=== PATIENT | male | born 1960 | race Caucasian/White ===

== ENCOUNTER 2025-03-30 12:51 | Outpatient (AMB) | payer OTHER, SELFPAY ==
--- NOTE | 2025-03-30 13:11 | A.PHYSOV_ITS ---
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 Patient has been referred for cervical radiculopathy. Left side of neck is worse Allergies azithromycin Allergy (Unknown, Verified 03/30/25 13:09) Unknown indomethacin Allergy (Unknown, Verified 03/30/25 13:09) Unknown HPI Comments Details: History of Present Illness The patient is a 64 year old male presenting with recurrent neck pain. He has a history of cervical spine surgery approximately 20 years ago for symptoms that were on his right side. He has residual numbness in one finger from the previous surgery. The current episode of neck pain began a couple of weeks prior to Bucky and is located on the left side. He has experienced intermittent tingling into his left elbow. The pain is not debilitating but is rated as a 6 or 7 out of 10 with head turning. He has also noticed increased clicking in his neck, especially in the evening. For management, he has been using a heating pad and takes a muscle relaxant at night as needed, while trying to avoid other medications. He uses Tylenol and Advil for severe pain. He had a neck X-ray in mid-February, but his insurance denied a subsequent request for an MRI. He has not participated in physical therapy since before his surgery 20 years ago. I reviewed the referring provider's no prior to consultation. Pain Description - Location: Pain is on the left side of the neck. - Onset: Started a couple of weeks before Bucky. - Radiation: Intermittent tingling into the left elbow. - Severity: Rated as a 6 or 7 out of 10 when turning his head, but fine at rest. - Quality: Associated with clicking sounds, which have become more frequent. - Exacerbating Factors: Pain worsens with head turning, particularly to the left. - Relieving Factors: Patient uses a heating pad. - Impact on Function: The pain is not debilitating and he can still perform activities, though he has not tried to swing a golf club. Results - Imaging: Patient reports having an X-ray of his neck in mid-February. 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 - Reports increased crepitus in the neck. - Neurological: Reports intermittent tingling in the left elbow. - Reports persistent numbness in one finger since prior surgery. Physical Exam Exam Exam: Physical Exam - Neck: No tenderness to palpation midline. - Mild tenderness on the left side with palpation. - Limited active range of motion with rotation. - Neurological: Sensation intact and equal bilaterally in upper extremities. - Musculoskeletal: Good strength with shoulder shrug and forward arm flexion. - He does have an increase in pain with Spurling's maneuver to his left shoulder. - Full range of motion bilateral upper extremities. Equal opener tender strength bilaterally. Vital Signs: BMI result Body Mass Index 29.7 Assessment & Plan Assessment & Plan (1) Cervical radiculopathy: Code(s): M54.12 - Radiculopathy, cervical region Category: Medical (2) Cervical spondylosis: Code(s): M47.812 - Spondylosis without myelopathy or radiculopathy, cervical region Category: Medical Plan Pain Management - Analgesia: The patient uses a muscle relaxant at night as needed, and Tylenol and Advil for severe pain. - His pain is currently fine but increases to a 6-7/10 with head turning. - Activities of Daily Living: The pain is not debilitating, but he has avoided certain activities like swinging a golf club. - Aberrant Drug Related Behaviors: The patient is actively trying to avoid taking medications. Plan Patient was informed and verbally consented to the use of an ambient scribe for clinic note documentation during this visit. 1. Cervicalgia The patient presents with recurrent left-sided neck pain, distinct from the right-sided symptoms that led to his cervical fusion 20 years ago. An MRI has been denied by insurance pending a trial of conservative therapy. A physician- directed home exercise plan will be initiated for five weeks, after which he will be re-evaluated. The plan includes straight-plane stretching and isometric strengthening exercises to be performed every other day, with avoidance of rotary movements. If symptoms do not improve after five weeks, an MRI of the cervical spine will be ordered. Discussion Notes I discussed with the patient that his increased neck crepitus is likely due to degenerative changes and increased movement at the spinal levels above and below his previous fusion. I explained that insurance requires a trial of conservative management, such as a home exercise program or physical therapy, before they will approve an MRI. The patient opted for a five-week physician-directed home exercise plan. I provided him with instructions for specific exercises, i ncluding straight-plane stretching and isometrics, while advising him to avoid rotary neck movements. I informed him that if his symptoms do not improve after the five-week period, we will proceed with ordering the MRI. A follow-up appointment was scheduled in five weeks to reassess his condition. Patient Instructions - Perform your prescribed neck exercises every other day for the next five we eks. - The exercises include stretching your neck forward, backward, and [id number]. - Also perform the strengthening exercises by placing your hand on your head and gently pushing against it for 10 seconds (forward, backward, and to each side). - Do not perform any twisting or rotating movements with your neck. - You may continue to use a heating pad, muscle relaxants, Tylenol, or Advil as needed for your pain. - Return to the clinic for a follow-up appointment in five weeks. Coding Level of Care Code New Pt Level 4 (59106) Diagnoses Cervical radiculopathy M54.12 Cervical spondylosis M47.812
[2025-03-30 13:12] VITALS: BMI 29.7
--- OUTSIDE RECORDS SUMMARY | 2025-03-30 14:26 | XMS_ITS | Clinical Summary ---
Author Organization 175 [facility] Address [address] [place] [address] Phone Care Team Providers Care Business Systems Consultant Name Role Phone Sabine Bill MD Primary Care Prov ider Allergies Active Allergy Reactions Criticality Noted Date Comments Azithromycin Rash Low 04/19/2016 No reaction documented. Indomethacin 07/22/2018 No reaction documented. Medications albuterol HFA (PROAIR HFA ; PROVENTIL HFA ; VENTOLIN HFA) 90 mcg/actuation inhaler Inhale 2 Puffs into the lungs every 4 hours as needed for Cough or Wheezing. 4 Active simvastatin (ZOCOR) 20 mg tablet TAKE 1 TABLET BY MOUTH AT BEDTIME 90 tablet 1 5 Active montelukast (SINGULAIR) 10 mg tablet TAKE 1 TABLET BY MOUTH AT BEDTIME 90 tablet 1 5 Active allopurinoL (ZYLOPRIM) 300 mg tablet TAKE 1 TABLET BY MOUTH DAILY 90 tablet 1 5 Active methocarbamoL (ROBAXIN) 750 mg tablet Take 1 tablet (750 mg total) by mouth at bedtime as needed for muscle spasms. 30 tablet 5 Active allopurinoL (ZYLOPRIM) 300 mg tablet TAKE 1 TABLET BY MOUTH DAILY 90 tablet 3 4 03/07/20 25 Discontinued simvastatin (ZOCOR) 20 mg tablet TAKE 1 TABLET BY MOUTH AT BEDTIME 90 tablet 3 4 03/07/20 25 Discontinued montelukast (SINGULAIR) 10 mg tablet TAKE 1 TABLET BY MOUTH AT BEDTIME 90 tablet 3 4 03/07/20 25 Discontinued Active Problems Problem Noted Date Diagnosed Date Sarcoidosis 03/10/2025 Mixed hyperlipidemia 03/10/2025 Postural dizziness 01/13/2025 Assessment & Plan (01/13/2025 8:03 AM EDT): Patient does endorse postural dizziness occasionally when changing positions too quickly. He was encouraged to remain hydrated, change positions slowly and to utilize compression stockings. Denies presyncope or syncope. Tubular adenoma 06/20/2023 Cervical radiculopathy 09/07/2021 Overview (01/14/2024): Last Assessment & Plan: Patient is s/p C5-6, C6-[address] Arreola 08/03/2006, he has been experiencing upper extremity pain, numbness tingling sporadically on and off this year, originally starting in the right arm. He had an appointment 09/07/2021 for right arm pain that had resolved by the time he came in, called back 11/13/2021 that the right arm pain recurred, went for PT. He states he was only able to do a couple sessions, then got COVID infection (approximately early December), was on Paxilovid. After his COVID infection, the right arm symptoms resolved, and he did not continue with PT. He comes back in today after noting new left arm symptoms similar to the right sided symptoms. He describes pain/discomfort in the left intrascapular region down the posterior arm, primarily in the elbow, with numbness tingling radiating down the posterior arm into the digits primarily left fifth digit. He states laying on his side is uncomfortable, he is not sleeping well, unless he sleeps on his back. He rates his left elbow pain 5-6/10 at its worst. We again reviewed his cervical spine MRI images on the computer, dated 08/30/2021 from [facility], he has postop changes with fusion C5-7, remaining levels with degenerative changes including neuroforaminal narrowing at multiple levels, worst at C3-4, but he also has right >left neuroforaminal narrowing at C7-T1 below his fusion level. Mr. Rich would like to try physical therapy again, prescription provided. Back in October, we had talked about trying right C6-7 CHIN before his symptoms resolved, he never had the injection done. If he is not improving with PT, we could consider CHIN, ordering EMG/NCS study. He will call with an update after PT, or with any additional questions or concerns prior to that. All questions answered on today's visit. Sinus bradycardia 08/07/2020 Overview (01/14/2024): / diffuse sarcoidosis Last Assessment & Plan: Bradycardic upon exam today with a heart rate in the low 50s. We will update 24- hour Holter monitor to further evaluate average ventricular heart rates as patient has complaints of increased shortness of breath and fatigue since his last office visit. He is not on any AV bib blocking agents. Assessment & Plan (01/13/2025 8:03 AM EDT): EKG was sinus bradycardia with a ventricular heart rate of 52 bpm today. Patient has had a few monitors over the years which revealed sinus bradycardia without any high degree AV block or sustained arrhythmias/pauses. He is not on any AV bib blocking agents. He is asymptomatic at this time. He will continue to monitor for any sudden onset dizziness lightheadedness, presyncope or syncope. Overweight (BMI 25.0-29.9) 09/16/2018 DDD (degenerative disc disease), lumbar 07/23/19 19 Internal hemorrhoids 07/22/2018 Overview (01/14/2024): 12/2015 H/o thrombosed Asthma 07/08/2016 Gout 04/19/2016 Hypercholesterolemia 04/19/2016 Assessment & Plan (01/13/2025 8:03 AM EDT): His last fasting lipid profile from 5 months ago revealed an LDL of 77. Elevation in triglycerides. This is being managed by his PCP. Total cholesterol 186. He will continue on his current dose of simvastatin 20 mg and be mindful of dietary fat intake. Resolved Problems Problem Noted Date Diagnosed Date Resolved Date Shortness of breath 11/14/2023 07/29/19 Overview (01/14/2024): Last Assessment & Plan: We will update surveillance echocardiogram to evaluate for any valvular abnormalities and LVEF. The patient has been encouraged to follow-up with his bryologist as it has been quite sometime and he plans to do so. Atypical chest pain 12/27/2020 07/29/19 Overview (01/14/2024): Last Assessment & Plan: He denies any anginal symptoms. Instructed to call 911 or go to the emergency room should the patient begin to experience chest pain or pressure lasting greater than 10 minutes does not resolve with rest. Encounters Date Type Department Care Team Description 03/11/2025 Results Follow-Up Adult Medicine - [address] [phone] Ngoc Tucker PA 03/10/2025 9:45 AM EST - 03/10/2025 11:59 PM EST Hospital Encounter Xray - [address] [phone] Cervical radiculopathy Discharge Disposition: Home or Self Care 03/10/2025 9:40 AM EST Lab Draw Station - [address] [phone] Routine general medical examination at a health care facility; Idiopathic chronic gout without tophus, unspecified site; Prostate cancer screening 03/10/2025 9:00 AM EST Office Visit Adult Medicine - [address] [phone] Ngoc Tucker PA Prostate cancer screening (Primary Dx); Routine general medical examination at a health care facility; Mixed hyperlipidemia; Mild intermittent asthma without complication; Idiopathic chronic gout without tophus, unspecified site; Sinus bradycardia; Tubular adenoma; Sarcoidosis; Cervical radiculopathy 01/28/2025 8:30 AM EDT Ancillary Procedure Pulmonology - [place] [address] [place] [address] Pulmonary sarcoidosis ([facility]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 [address] [facility] [address] [place] [address] Marcella Prater NP Bradycardia (Primary Dx); Sinus bradycardia; Hypercholesterolemia; Postural dizziness 01/03/2025 8:45 AM EDT Office Visit Adult Medicine [address] [address] Frank Vásquez PA Pain of left heel (Primary Dx); Needs flu shot from Last 3 Months Immunizations Immunization Administration Dates Next Due Influenza Quadravalent, MDCK , 0.5ml, preservative free (Flucelvax) 6mo and older 12/20/2022,01/08/2021,11/19/2016 Influenza Quadravalent, MDCK , 0.5ml, with preservative (Flucelvax) 6mo and older 02/08/2022,12/17/2019,01/30/2019 Influenza Quadrivalent, 0.5m l, preservative free (Fluarix; FluLaval; Fluzone) ages 6mo and older (Afluria) 3yo and older 02/08/2022,12/17/2019,01/30/2019 Influenza trivalent, 0.5mL, preservative free (Fluarix; FluLaval; Fluzone) ages 6mo and older (Afluria) 3 years and older 01/11/2024 Influenza trivalent, MDCK, 0 .5mL, preservative free (Flucelvax) 6mo and older 01/03/2025 Influenza trivalent, with preservative (Fluzone; Afluria) 6mo and older 12/09/2023,12/20/2011 Influenza, Unspecified 01/11/2024 Pfizer SARS-CoV-2 COVID-19, mRNA, LNP-S, preservative free 07/18/2020,07/17/2020,06/27/2020,2020 RSV, bivalent, protein subun it RSVpreF, 0.5mL, Preservative Free (Arexvy) 50yo and older 06/04/2024 Tdap Tetanus diptheria acell ular pertussis (Boostrix; Adacel) 7yo and older 09/16/2018 Zoster recombinant (Shingrix ) 19yo and older 08/03/2021,03/25/2021 Surgical History Surgery Date Site/Laterality Comments COLONOSCOPY 12/28/2012 PROCEDURE: HISTORICAL COLONOSCOPY; COMMENT: repeat 10 years; no report TONSILLECTOMY PROCEDURE: HISTORICAL TONSILLECTOMY OTHER SURGICAL HISTORY 08/03/2006 PROCEDURE: AR ARTHRD ANT INTERBODY MIN DSC CRV BELOW C2; COMMENT: C5-6, C6-7 ACDF, Dr. Arreola Medical History Medical History Date Comments Internal hemorrhoids 07/22/2018 DX:Internal hemorrhoids; COMMENT: 12/2015 H/o thrombosed Asthma 07/08/2016 DX:Asthma Gout 04/19/2016 DX:Gout Hypercholesterolemia 04/19/2016 DX:Hypercho lesterolemia DDD (degenerative disc disease), lumbar 07/23/19 DX:DDD (degenerative disc disease), lumbar Overweight (BMI 25.0-29.9) DX:Ov erweight (BMI 25.0-29.9) Sarcoidosis DX:Sarcoidosis Family History Medical History Relation Name Comments Diabetes Brother 1 HTN Hypertension Brother 2 Other: ?emphysema Brother 3 Stroke Father Emphysema Mother tobacco Diabetes Sister 1 Stroke Sister 1 Lymphoma Sister 2 No Known Problems Son Relation Name Status Comments Brother 1 Alive Brother 2 Alive Brother 3 Father Mother Sister 1 Sister 2 Alive Son Alive Social History Tobacco Use Types Packs/Day Years Used Date Smoking Tobacco: Never Smokeless Tobacco: Never Tobacco Cessation:Counseling Given: Not Answered Alcohol Use Standard Drinks/Week Comments Yes 0 (1 standard drink = 0.6 oz pur e alcohol) Housing Instability Answer Date Recorde d Are you worried that in the next 2 months you may not have stable housing? No 09/08/2024 Food Access & Nutrition Answer Date Rec orded Do you have access to a vari ety of food including fruits and vegetables? Yes 09/08/2024 Access to Healthcare Answer Date Record ed Within the last 3 months, ho w many times did you visit the emergency department for your medical care? 0 09/08/2024 Health Literacy Answer Date Recorded How often do you need to hav e someone help you when you read instructions, pamphlets, or other written material from your doctor or pharmacy? Never 09/08/2024 Caregiver: How often do you need to have someone help you when you read instructions, pamphlets, or other written material from your doctor or pharmacy? Not on file 09/08/2024 Financial Risk Answer Date Recorded How hard is it for you to pa y for the very basics like food, housing, medical care, and air conditioning / heating? Not very hard 09/08/2024 Transportation Answer Date Recorded Has the lack of transportati on kept you from meetings, work, or from getting things needed for daily living? No Has the lack of transportati on kept you from medical appointments or from getting medications? No 09/08/2024 Social Isolation Answer Date Recorded How often do you feel lonely or isolated from ose around you? Rarely 09/08/2024 Food Risk Answer Date Recorded Within the past 12 months we worried whether our food would run out before we got money to buy more. Never true 09/08/2024 Within the past 12 months th e food we bought just didn't last and we didn't have money to get more. Never true 09/08/2024 Dependent Care Answer Date Recorded Do you need help finding or paying for care for your loved ones. For example, children librarian or elderly care for an older adult? No 09/08/2024 Education Answer Date Recorded Do you think completing more education or training, like finishing a GED, going to college, or learning a trade, would be helpful for you? N/A 09/08/2024 Employment and Income Answer Date Recor ded During the last four weeks, have you been actively looking for work? No 09/08/2024 Living Situation Answer Date Recorded What is your living situation? Unrecognized valu e 09/08/2024 Sex and Gender Information Value Date Recorded Sex Assigned at Not on file Legal Sex Male 9:09 PM EST Gender Identity Not on file Sexual Orientation Not on file Last Filed Vital Signs Vital Sign Reading Time Taken Comments Blood Pressure 110/60 03/10/2025 9:30 AM EST Pulse 55 03/10/2025 8:45 AM EST Temperature 36.7 C (98 F) 01/03/2025 8:35 AM EDT Respiratory Rate 20 12/08/2024 8:30 AM EDT Oxygen Saturation 97% 03/10/2025 8:45 AM EST Inhaled Oxygen Concentration - - Weight 96.8 kg (213 lb 6.4 oz) 03/10/2025 8:45 A M EST Height 180.3 cm (5' 11 ) 01/13/2025 7:40 AM EDT Body Mass Index 29.76 01/13/2025 7:40 AM EDT Plan of Treatment Upcoming Encounters Date Type Department Care Team (Late st Contact Info) Description 09/08/2025 8:45 AM EDT Office Visit Adult Medicine - [place] [address] [place] [address] Ngoc Tucker PA [address] [place] [address] 12/08/2025 8:30 AM EDT Office Visit Pulmonology - [place] [address] [facility] [address] [place] [address] Jahaira Heller MD [address] [place] [address] Health Maintenance Due Date Last Done Comments Pneumococcal Vaccine: 50+ Years (1 of 2 - PCV) 1981 HIV Screening 05/01/2019 COVID-19 Vaccine (2024- season) 2024 01/11/2024, 02/02/2021, 07/18/2020, Additional history exists Social Influencers of Health Screening 09/08/2025 09/08/2024 Colorectal Cancer Screening: Colonoscopy 02/05/2028 02/04/2023 DTaP,Tdap,and Td Vaccines (2 - Td or Tdap) 09/16/2028 09/16/2018 Cholesterol Screening (Lipid Panel) 03/10/2030 03/10/2025, 07/28/2024, 01/27/2024, Additional history exists Zoster Vaccines Completed 08/03/2021, 03/25/2021 Hepatitis C Screening Completed 08/10/2021 RSV Immunization Adult Patients Completed 06/04/2024 Depression Screening Completed 09/08/2024 Influenza Vaccine Completed 01/03/2025, , 01/11/2024, Additional history exists HIB Vaccines Aged Out No longer eligi ble based on patient's age to complete this topic HPV Vaccines Aged Out No longer eligi ble based on patient's age to complete this topic Hepatitis A Vaccines Aged Out No long er eligible based on patient's age to complete this topic Hepatitis B Vaccines Aged Out No long er eligible based on patient's age to complete this topic IPV Vaccines Aged Out No longer eligi ble based on patient's age to complete this topic MMR Vaccines Aged Out No longer eligi ble based on patient's age to complete this topic Meningococcal ACWY Vaccine Aged Out N o longer eligible based on patient's age to complete this topic Meningococcal B Vaccine Aged Out No l onger eligible based on patient's age to complete this topic RSV Immunization Patients Under 20 months Aged Out No longer eligible based on patient's age to complete this topic Varicella Vaccines Aged Out No longer eligible based on patient's age to complete this topic Procedures Procedure Name Priority Date/Time Associated Diagnosis Comments XR CERVICAL SPINE 4-5 VIEWS Routine 03/10/2025 9:53 AM EST Cervical radiculopathy CBC WITH AUTO DIFFERENTIAL Routine 03/10/2025 9:40 AM EST Routine general medical examination at a health care facility PROSTATE SPECIFIC ANTIGEN SCREEN Routine 03/10/2025 9:40 AM EST Prostate cancer screening URIC ACID Routine 03/10/2025 9:40 AM EST Idiopathic chronic gout without tophus, unspecified site CBC AND DIFFERENTIAL Routine 03/10/2025 9:40 AM EST Routine general medical examination at a health care facility COMPREHENSIVE METABOLIC PANEL Routine 03/10/2025 9:40 AM EST Routine general medical examination at a health care facility LIPID PANEL WITH REFLEX TO DIRECT LDL Routine 03/10/2025 9:40 AM EST Routine general medical examination at a health care facility PULMONARY FUNCTION TESTING Routine 01/28/2025 8:53 AM EDT Pulmonary sarcoidosis (CMS/HCC V24) ECG 12-LEAD Routine 01/13/2025 8:03 AM EDT Bradycardia HM COLONOSCOPY Routine 02/04/2023 from Last 3 Months or Most Recently Relevant to Health Maintenance Results * XR Cervical Spine 4-5 Views (03/10/2025 9:53 AM EST) Anatomical Region Laterality Modality Spine, C-spine Radiographic Kendra ging 03/10/2025 5:49 PM EST Impressions 03/10/2025 5:53 PM EST Anterior spinal fusion at C5-C7 with bony bridging. No evidence of hardware complication. Moderate degenerative changes of the cervical spine. -------- FINAL REPORT -------- Dictated By: Moo Sebastian Dictated Date: 03/10/2025 17:49 ET Assigned Physician: Moo Sebastian Reviewed and Electronically Signed By: Moo Sebastian Signed Date: 03/10/2025 17:53 ET Workstation ID: [id number] Transcribed By: Self Edit Transcribed Date: 03/10/2025 17:49 ET Narrative 03/10/2025 5:53 PM EST HISTORY: worsening neck pain- hx of c5-c7 anterior fusion spondlyosis- last mri in 2021 showed Degenerative changes worse at C3-C4 with severe bilateral neuroforaminal stenosis and moderate spinal canal stenosis. TECHNIQUE: 4 views of the cervical spine COMPARISON: Cervical spine radiograph from 08/20/2021 FINDINGS: The cervical spine is visualized from C1-C7. Anterior spinal fusion at C5-C7. Bony bridging at C5-C6 and C6-C7. No perihardware lucencies or periprosthetic fractures. Vertebral body height is maintained. Decreased disc height at C3-C4 and C4-C5 with endplate sclerosis. Moderate-sized anterior osteophytes are present. Moderate uncovertebral arthropathy. The cervical alignment is maintained without spondylolisthesis. No acute fracture or dislocation is seen. There is no prevertebral soft tissue swelling. Procedure Note Moo Sebastian MD - 03/10/2025 HISTORY: worsening neck pain- hx of c5-c7 anterior fusion spondlyosis-last mri in 2021 showed Degenerative changes worse at C3-C4 with severebilateral neuroforaminal stenosis and moderate spinal canal stenosis. TECHNIQUE: 4 views of the cervical spine COMPARISON: Cervical spine radiograph from 08/20/2021 FINDINGS: The cervical spine is visualized from C1-C7. Anterior spinal fusion atC5-C7. Bony bridging at C5-C6 and C6-C7. No perihardware lucencies orperiprosthetic fractures. Vertebral body height is maintained. Decreaseddisc height at C3-C4 and C4-C5 with endplate sclerosis. Moderate-sizedanterior osteophytes are present. Moderate uncovertebral arthropathy. Thecervical alignment is maintained without spondylolisthesis. No acutefracture or dislocation is seen. There is no prevertebral soft tissueswelling. IMPRESSION: Anterior spinal fusion at C5-C7 with bony bridging. No evidence ofhardware complication. Moderate degenerative changes of the cervicalspine. -------- FINAL REPORT -------- Dictated By: Moo Sebastian Dictated Date: 03/10/2025 17:49 ET Assigned Physician: Moo Sebastian Reviewed and Electronically Signed By: Moo Sebastian Signed Date: 03/10/2025 17:53 ET Workstation ID: [id number] Transcribed By: Self Edit Transcribed Date: 03/10/2025 17:49 ET us Ngoc GREEN IMG XR PROCEDURES Final Re sult * Prostate specific antigen screen (03/10/2025 9:40 AM EST) PSA 1.51 0.00 - 4.00 ng/mL 03/10/2025 1:11 PM EST [facility] Blood Venous blood specimen / Unknown Venipuncture / Unknown 03/10/2025 9:40 AM EST 03/10/2025 9:40 AM EST Narrative [facility] - 03/10/2025 1:11 PM EST The [employer] IM Chemiluminescent Immunoassay is used. Results obtained with different assay methods or kits cannot be used interchangeably. Results cannot be interpreted as absolute evidence of the presence or absence of malignant disease. [facility] LAB BLOOD ORDERABLES Final Result [facility] [address] [place] [address], [place] [phone] * (ABNORMAL) Lipid panel with reflex to direct LDL (03/10/2025 9:40 AM EST) [facility] Signature Cholesterol 202(H) 0 - 200 mg/dL 03/10/2025 1:21 PM EST [facility] Triglycerides 243(H) 0 - 150 mg/dL 03/10/2025 1:[address] [facility] HDL 58 >=40 mg/dL 03/10/2025 1:[address] [facility] LDL Calculated 95 0 - 100 mg/dL 03/10/2025 1:[address] [facility] Comment:Estimated LDL is ketan culated using the Friedewald equation: Total cholesterol - HDL cholesterol - (Triglycerides/5) VLDL Cholesterol Ketan 48.6 mg/dL 03/10/2025 1:[address] [facility] Non HDL Chol. (LDL+VLDL) 144 <145 mg/dL 03/10/2025 1:[address] [facility] Chol/HDL Ratio 3.5 0.0 - 4.4 03/10/2025 1:[address] [facility] Blood Venous blood specimen / Unknown Venipuncture / Unknown 03/10/2025 9:40 AM EST 03/10/2025 9:40 AM EST [facility] LAB BLOOD ORDERABLES Final Result Performing Organization Address City/[facility]/ZIP Co de Phone Number [facility] [address] [place] [address], [place] [phone] * (ABNORMAL) CBC auto differential (03/10/2025 9:40 AM EST) [facility] WBC 5.1 4.8 - 10.8 K/mcL LAB HEMETOLOGY METHOD 03/10/2025 12:[address] [facility] RBC 5.10 4.50 - 5.50 M/mcL LAB HEMETOLOGY METHOD 03/10/2025 12:[address] [facility] Hemoglobin 16.7 13.5 - 17.5 g/dL LAB HEMETOLOGY METHOD 03/10/2025 12:[address] [facility] Hematocrit 47.8 42.0 - 54.0 % LAB HEMETOLOGY METHOD 03/10/2025 12:[address] [facility] MCV 93.5 79.0 - 98.0 FL LAB HEMETOLOGY METHOD 03/10/2025 12:[address] [facility] MCH 32.7(H) 27.0 - 32.0 pcg LAB HEMETOLOGY METHOD 03/10/2025 12:[address] [facility] MCHC 34.9 32.0 - 37.0 g/dL LAB HEMETOLOGY METHOD 03/10/2025 12:[address] [facility] RDW 12.4 11.0 - 15.0 % LAB HEMETOLOGY METHOD 03/10/2025 12:[address] [facility] Platelets 239 130 - 400 K/mcL LAB HEMETOLOGY METHOD 03/10/2025 12:[address] [facility] MPV 10.2 7.0 - 11.0 FL LAB HEMETOLOGY METHOD 03/10/2025 12:[address] [facility] NRBC 0.0 <1.0 % LAB HEMETOLOGY METHOD 03/10/2025 12:[address] [facility] NRBC Absolute 0.00 <0.10 K/mcL LAB HEMETOLOGY METHOD 03/10/2025 12:[address] [facility] Neutrophils Relative 58.7 % LAB HEMETOLOGY METHOD 03/10/2025 12:[address] [facility] Lymphocytes Relative 24.4 % LAB HEMETOLOGY METHOD 03/10/2025 12:[address] [facility] Monocytes Relative 10.4 % LAB HEMETOLOGY METHOD 03/10/2025 12:[address] [facility] Eosinophils Relative 4.3 % LAB HEMETOLOGY METHOD 03/10/2025 12:[address] [facility] Basophils Relative 1.6 % LAB HEMETOLOGY METHOD 03/10/2025 12:[address] [facility] Immature Granulocytes Relative 0.6 % LAB HEMETOLOGY METHOD 03/10/2025 12:[address] [facility] Neutrophils Absolute 2.98 1.50 - 7.00 K/mcL LAB HEMETOLOGY METHOD 03/10/2025 12:[address] [facility] Lymphocytes Absolute 1.24 1.00 - 5.00 K/mcL LAB HEMETOLOGY METHOD 03/10/2025 12:[address] [facility] Monocytes Absolute 0.53 0.20 - 1.00 K/mcL LAB HEMETOLOGY METHOD 03/10/2025 12:[address] [facility] Eosinophils Absolute 0.22 0.00 - 0.50 K/mcL LAB HEMETOLOGY METHOD 03/10/2025 12:[address] [facility] Basophils Absolute 0.08 0.00 - 0.20 K/mcL LAB HEMETOLOGY METHOD 03/10/2025 12:[address] [facility] Immature Granulocytes Absolute 0.03 0.00 - 0.03 K/mcL LAB HEMETOLOGY METHOD 03/10/2025 12:[address] [facility] Blood Venous blood specimen / Unknown Venipuncture / Unknown 03/10/2025 9:40 AM EST 03/10/2025 9:40 AM EST [facility] LAB BLOOD ORDERABLES Final Result [facility] [address] [place] [address], [place] [phone] * Uric acid (03/10/2025 9:40 AM EST) [facility] Uric Acid 5.2 3.7 - 9.2 mg/dL 03/10/2025 1:21 PM EST [facility] Blood Venous blood specimen / Unknown Venipuncture / Unknown 03/10/2025 9:40 AM EST 03/10/2025 9:40 AM EST [facility] BLOOD ORDERABLES Final Result Performing Organization Address City/[facility]/ZIP Co de Phone Number [facility] [address] [place] [address], [place] [phone] * (ABNORMAL) Comprehensive metabolic panel (03/10/2025 9:40 AM EST) [facility] Sodium 140 133 - 145 mmol/L 03/10/2025 2:[address] [facility] Potassium 4.7 3.5 - 5.5 mmol/L 03/10/2025 2:[address] [facility] Chloride 101 96 - 110 mmol/L 03/10/2025 2:[address] [facility] CO2 30 21 - 32 mmol/L 03/10/2025 2:[address] [facility] Anion Gap 9 3 - 11 03/10/2025 2:[address] [facility] Glucose 91 70 - 100 mg/dL 03/10/2025 2:39 PM EST [facility] BUN 16 5 - 25 mg/dL 03/10/2025 2:[address] [facility] Creatinine 1.16 0.70 - 1.30 mg/dL 03/10/2025 2:[address] [facility] eGFR 71 >=60 mL/min/1. 73m2 03/10/2025 2:[address] [facility] Comment:Calculation based on the Chronic Kidney Disease Epidemiology Collaboration (CKD-EPI) equation refit without adjustment for race. BUN/Creatinine Ratio 13.8 03/10/2025 2:[address] [facility] Calcium 9.2 8.5 - 10.5 mg/dL 03/10/2025 2:[address] [facility] AST (SGOT) 42 10 - 42 unit/L 03/10/2025 2:[address] [facility] ALT (SGPT) 69(H) 10 - 60 unit/L 03/10/2025 2:[address] [facility] Alkaline Phosphatase 83 42 - 121 unit/L 03/10/2025 2:[address] [facility] Total Protein 6.9 6.0 - 8.0 g/dL 03/10/2025 2:[address] [facility] Albumin 3.9 3.2 - 5.0 g/dL 03/10/2025 2:[address] [facility] Total Bilirubin 0.7 0.0 - 1.4 mg/dL 03/10/2025 2:[address] [facility] Blood Venous blood specimen / Unknown Venipuncture / Unknown 03/10/2025 9:40 AM EST 03/10/2025 9:40 AM EST [facility] BLOOD ORDERABLES Final Result [facility] [address] [place] [address], * Pulmonary function testing: Spirometry with Bronchodilator, Carbon Monoxide Diffusing Capacity (01/28/2025 8:53 AM EDT) Impressions Linda Brooks MD - 01/28/2025 8:53 AM EDT Pulmonary function test interpretation. Spirometry done today reveals FEV1 of 3.50 which is 96% of the predicted value, FVC is 4.08 which is 84% of the predicted value, FEV1 to FVC ratio is 115% of the predicted value, there is no bronchodilator response. Flow-volume is consistent with normal pattern. Static lung volumes are within normal limits. Diffusion lung capacity is within normal limit after correction for alveolar volume. This study is consistent with normal pulmonary mechanics, however if diagnosis of asthma is in question recommend methacholine challenge test. Clinical correlation is advised. Jahaira Heller MD PFT ORDERABLES Final Result * ECG 12 lead (01/13/2025 8:03 AM EDT) Ventricular Rate ECG 52 BPM GEMUSE Atrial Rate 52 BPM GEMUSE P-R Interval 144 ms GEMUSE QRS Duration 80 ms GEMUSE Q-T Interval 432 ms GEMUSE QTc 401 ms GEMUSE P Wave [place] 65 degrees GEMUSE R [place] 11 degrees GEMUSE T [place] 34 degrees GEMUSE ECG Interpretation Sinus bradycardia Otherwise normal ECG No previous ECGs available Confirmed by MD Dean, Soto ([id number]) on 01/17/2025 4:06:20 PM GEMUSE 01/13/2025 7:44 AM EDT 01/17/2025 4:06 PM EDT us Marcella Prater MANUSCRIPTS CURATOR ECG ORDERABLES Edited Result - Final GEMUSE * Colonoscopy (02/04/2023) Pathologist [facility] Colonoscopy No interpreta tion,abstr acted Anatomical Region Laterality Modality Other Historical Provider HEALTH MAINTENANCE Final Result from Last 3 Months or Most Recently Relevant to Health Maintenance Insurance [employer] Care Teams Business Systems Consultant Relationship Specialty Start Date End Date Sabien Bill MD [address] [place] [id number] PCP - General Internal Medicine 06/28/20
--- OUTSIDE RECORDS SUMMARY | 2025-03-30 14:26 | XMS_ITS ---
Author Name [facility] Organization Unknown Care Team Organization Name Specialty Phone Email Start Date End Da te [facility] NULL Primary Care 01/01/2023 11/17/2023 [facility] NULL Primary Care 02/05/2022 11/17/2023
== END 2025-03-30 13:24 | disposition home or self-care (01) ==
LOC: HO.HPHYS 12:51
PROVIDERS: PCP Internal Medicine; Visit Provider Physician Assistant
DX: M54.12 Radiculopathy, cervical region (principal); M47.812 Spondylosis without myelopathy or radiculopathy, cervical region
CPT/HCPCS: 99204